=== PATIENT | female | born 1960 ===

== ENCOUNTER 2017-09-28 07:58 | Day surgery (SDC) | payer OTHER ==
[~2017-09-28] VITALS: Ht 152.4 cm; Wt 47.6 kg
[2017-09-28] MEDS ORDERED: LIDOCAINE 2% 100 MG/5 ML UJET TP ONE (10:19)
[2017-09-28] MEDS ORDERED: KETOROLAC 30 MG/ML VIAL ONE (10:50)
== END 2017-09-28 11:38 | disposition home or self-care (01) ==
LOC: MDS 07:58 → MMU 08:04 → MDS 11:38
PROVIDERS: ATTEND Internal Medicine Gastroenterology
DX: Z12.11 Encounter for screening for malignant neoplasm of colon (principal); M19.90 Unspecified osteoarthritis, unspecified site; M85.80 Other specified disorders of bone density and structure, unspecified site
CPT/HCPCS: 45378; J1885